=== PATIENT | female | born 1985 | race Hispanic/Latino ===

== ENCOUNTER 2018-05-16 03:06 | Emergency (ER) | payer OTHER, SELFPAY ==
[2018-05-16] MEDS ORDERED: METHYLPREDNISOLONE 125 MG INJ ONE (03:17)
[2018-05-16] MEDS ORDERED: DIPHENHYDRAMINE 50 MG/ML VIAL ONE (03:17)
[2018-05-16] MEDS ORDERED: hydrOXYzine HCl 25 MG TAB ONE (03:17)
[2018-05-16] MEDS ORDERED: PANTOPRAZOLE 40 MG INJ ONE (03:17)
[2018-05-16] MEDS ORDERED: NA CHLORIDE 0.9% 1,000 ML ONE (03:18)
[2018-05-16] MEDS ORDERED: FAMOTIDINE 20 MG/2 ML VIAL IV ONE (03:18)
--- NOTE | 2018-05-16 05:07 | EDPHYS ---
Physician Documentation [facility] Name: Radha Chi Age: 32 yrs Sex: Female : 1985 Arrival Date: 05/16/2018 Time: 03:06 Bed 4 Private MD: ED Physician Kevin Arreguin HPI: 05/16 03:15 This 32 yrs old Female presents to ER via Unassigned with complaints of ps1 Allergic Reaction. 03:15 patient has history of non-specific urticaria without cause. Patient states it is ps1 usually associated with food but no specific etiology. Onset was this evening associated with urticaria on abdomen and upper extremities. Tickling in back of throat. . 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 - Social history:: Smoking status: Patient uses tobacco products, denies chronic smoking, but will smoke occasionally, Patient uses alcohol, occasionally. - Ebola Screening: : Patient negative for fever greater than or equal to 101.5 degrees Fahrenheit, and additional compatible Ebola Virus Disease symptoms. ROS: 03:15 Constitutional: Negative for fever, chills, and weight loss, Eyes: Negative for injury, ps1 pain, redness, and discharge, Cardiovascular: Negative for chest pain, palpitations, and edema, Respiratory: Negative for shortness of breath, cough, wheezing, and pleuritic chest pain, Abdomen/GI: Negative for abdominal pain, nausea, vomiting, diarrhea, and constipation, Back: Negative for injury and pain. 03:15 Skin: Positive for rash. Exam: 03:15 Constitutional: This is a well developed, well nourished patient who is awake, alert, ps1 and in no acute distress. Head/Face: Normocephalic, atraumatic. Eyes: Pupils equal round and reactive to light, extra-ocular motions intact. Lids and lashes normal. Conjunctiva and sclera are non-icteric and not injected. ENT: Nares patent. No nasal discharge, no septal abnormalities noted. Tympanic membranes are normal and external auditory canals are clear. Oropharynx with no redness, swelling, or masses, exudates, or evidence of obstruction, uvula midline. Mucous membranes moist. Chest/axilla: Normal chest wall appearance and motion. Nontender with no deformity. No lesions are appreciated. Cardiovascular: Regular rate and rhythm. No gallops, murmurs, or rubs. Normal PMI, no JVD. No pulse deficits. Respiratory: Lungs have equal breath sounds bilaterally, clear to auscultation and percussion. No rales, rhonchi or wheezes noted. No increased work of breathing, no retractions or nasal flaring. Abdomen/GI: Soft, non-tender, with normal bowel sounds. No distension or tympany. No guarding or rebound. No evidence of tenderness throughout. 03:15 Skin: urticaria, and is diffusely located. Vital Signs: 03:15 BP 103 / 87; Pulse 145; Resp 26 S; Temp 98.3(O); Pulse Ox 100% on R/A; Weight 57.61 kg jd3 (R); Height 5 ft. 1 in. (154.94 cm) (R); 03:41 BP 124 / 86; Pulse 106; Resp 22 S; Pulse Ox 100% on R/A; jd3 03:57 BP 124 / 86; Pulse 94; Resp 17 S; Pulse Ox 100% on R/A; jd3 04:20 BP 116 / 85; Pulse 89; Resp 17 S; Pulse Ox 100% on R/A; jd3 04:57 BP 114 / 73; Pulse 83; Resp 15 S; Pulse Ox 100% on R/A; jd3 05:52 BP 113 / 79; Pulse 95; Resp 20 S; Temp 97.8(TE); Pulse Ox 100% on R/A; bb 03:15 Body Mass Index 24.00 (57.61 kg, 154.94 cm) jd3 MDM: 03:17 Patient medically screened. ps1 05:04 Data reviewed: vital signs, nurses notes. Counseling: I had a detailed discussion with ps1 the patient and/or guardian regarding: the historical points, exam findings, and any diagnostic results supporting the discharge/admit diagnosis, to return to the emergency department if symptoms worsen or persist or if there are any questions or concerns that arise at home. Response to treatment: the patient's symptoms have resolved after treatment, no rash or respiratory symptoms. 05/16 03:50 Order name: IV; Complete Time: 03:50 jd3 Administered Medications: 03:12 Drug: Benadryl 50 mg Route: IVP; Site: right antecubital; bb 04:12 Follow up: Response: No adverse reaction; Marked relief of symptoms jd3 03:12 Drug: NS 0.9% 1000 ml Route: IV; Rate: 1 bolus; Site: right antecubital; bb 04:12 Follow up: IV Status: Completed infusion; IV Intake: 1000ml bb 03:13 Drug: ProTONIX 40 mg Route: IVP; Site: right antecubital; bb 04:13 Follow up: Response: No adverse reaction; Marked relief of symptoms jd3 03:13 Drug: hydrOXYzine 25 mg Route: PO; bb 04:13 Follow up: Response: No adverse reaction; Marked relief of symptoms jd3 03:14 Drug: Pepcid 20 mg Route: IVP; Site: right antecubital; bb 04:14 Follow up: Response: No adverse reaction; Marked relief of symptoms jd3 03:15 Drug: SOLU-Medrol 125 mg Route: IVP; Site: right antecubital; bb 04:15 Follow up: Response: No adverse reaction; Marked relief of symptoms jd3 Disposition: 05/16/18 05:06 Discharged to Home. Impression: Urticaria, unspecified. - Condition is Stable. - Discharge Instructions: Hives, Oaub-ye-Duis. - Prescriptions for Benadryl 25 mg Oral Capsule - take 1 capsule by ORAL route every 6 hours As needed; 30 tablet. Medrol (Domenic) 4 mg Oral Tablets, Dose Pack - take 1 tablet by ORAL route as directed - follow package instructions; 1 packet. EpiPen 0.3 mg Injection auto- injector - inject 1 pen by INTRAMUSCULAR route as directed Inject into the outer portion of the thigh, through clothing if necessary. Indicated in the emergency treatment of allergic reactions; 2 Each. - Medication Reconciliation Form, Thank You Letter, Antibiotic Education, Prescription Opioid Use form. - Follow up: Private Physician; When: As needed; Reason: Recheck today's complaints, Continuance of care, Re-evaluation by your physician. Follow up: Emergency Department; When: As needed; Reason: Trouble breathing, Worsening of condition. - Problem is an acute exacerbation. - Symptoms are resolved. Signatures: Ivy Coles RN RN bb Carl Parikh RN RN jd3 Kevin Arreguin MD MD ps1 Corrections: (The following items were deleted from the chart) 05:53 05:06 05/16/2018 05:06 Discharged to Home. Impression: Urticaria, unspecified. bb Condition is Stable. Forms are Medication Reconciliation Form, Thank You Letter, Antibiotic Education, Prescription Opioid Use. Follow up: Private Physician; When: As needed; Reason: Recheck today's complaints, Continuance of care, Re-evaluation by your physician. Follow up: Emergency Department; When: As needed; Reason: Trouble breathing, Worsening of condition. Problem is an acute exacerbation. Symptoms are resolved. ps1
--- NOTE | 2018-05-16 05:07 | ER ---
Nurse's Notes [facility] Name: Radha Chi Age: 32 yrs Sex: Female : 1985 Arrival Date: 05/16/2018 Time: 03:06 Bed 4 Private MD: Diagnosis: Urticaria, unspecified Presentation: 05/16 03:15 Method Of Arrival: Ambulatory jd3 03:15 Presenting complaint: Patient states: "I am having an allergic reaction.". Transition jd3 of care: patient was not received from another setting of care. Onset: The symptoms/episode began/occurred just prior to arrival. Anaphylaxis evaluation, the patient reports or I have noted the following symptoms which indicate a significant risk of anaphylaxis: angioedema lump in the throat which may suggest laryngeal edema shortness of breath. Onset of symptoms was May 16, 2018. Risk Assessment: Do you want to hurt yourself or someone else? Patient reports no desire to harm self or others. Initial Sepsis Screen: Does the patient meet any 2 criteria? RR > 20 per min. HR > 90 bpm. Yes Does the patient have a suspected source of infection? No. Patient's initial sepsis screen is negative. Care prior to arrival: None. 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 - Social history:: Smoking status: Patient uses tobacco products, denies chronic smoking, but will smoke occasionally, Patient uses alcohol, occasionally. - Ebola Screening: : Patient negative for fever greater than or equal to 101.5 degrees Fahrenheit, and additional compatible Ebola Virus Disease symptoms. Screenin:36 Abuse screen: Denies threats or abuse. Nutritional screening: No deficits noted. jd3 Tuberculosis screening: No symptoms or risk factors identified. Fall Risk IV access (20 points). Ambulatory Aid- None/Bed Rest/Nurse Assist (0 pts). Gait- Normal/Bed Rest/Wheelchair (0 pts) Mental Status- Oriented to own ability (0 pts). Total Reina Fall Scale indicates No Risk (0-24 pts). Assessment: 03:15 General: Appears uncomfortable, Behavior is cooperative, anxious. jd3 03:15 Pain: Complains of pain in abdomen. Neuro: Level of Consciousness is awake, alert, jd3 obeys commands, Oriented to person, place, time, situation. Cardiovascular: Heart tones S1 S2 present Capillary refill < 3 seconds Patient's skin is warm and dry. Respiratory: Reports shortness of breath at rest lumb in the back of throat. Airway is patent Respiratory effort is even, labored, Respiratory pattern is regular, symmetrical, angioedema noted Breath sounds are clear bilaterally. GI: Abdomen is round Bowel sounds present X 4 quads. Abd is soft and non tender X 4 quads. : No signs and/or symptoms were reported regarding the genitourinary system. EENT: No signs and/or symptoms were reported regarding the EENT system. Derm: Skin is intact, Skin is dry, Skin is normal, Skin temperature is warm Rash noted that is itchy, raised, generalized. Musculoskeletal: Circulation, motion, and sensation intact. Range of motion: intact in all extremities. 03:36 Reassessment: Patient and/or family updated on plan of care and expected duration. Pain jd3 level reassessed. Patient is alert, oriented x 3, equal unlabored respirations, skin warm/dry/pink. reports medication starting to help. 03:59 Reassessment: Patient and/or family updated on plan of care and expected duration. Pain jd3 level reassessed. Patient is alert, oriented x 3, equal unlabored respirations, skin warm/dry/pink. Patient states feeling better. Patient states symptoms have improved. 04:20 Reassessment: Patient appears in no apparent distress at this time. Patient and/or jd3 family updated on plan of care and expected duration. Pain level reassessed. Patient is alert, oriented x 3, equal unlabored respirations, skin warm/dry/pink. Patient states feeling better. Patient states symptoms have improved. 04:56 Reassessment: Patient appears in no apparent distress at this time. Patient and/or jd3 family updated on plan of care and expected duration. Pain level reassessed. Patient is alert, oriented x 3, equal unlabored respirations, skin warm/dry/pink. Patient states feeling better. Patient states symptoms have improved. 05:53 Reassessment: Patient and/or family updated on plan of care and expected duration. Pain bb level reassessed. Patient is alert, oriented x 3, equal unlabored respirations, skin warm/dry/pink. pt verbalized understanding of and agrees to plan of care discharge instructions given pt ambulated with steady gait to exit accompanied by family Patient states symptoms have improved. Vital Signs: 03:15 BP 103 / 87; Pulse 145; Resp 26 S; Temp 98.3(O); Pulse Ox 100% on R/A; Weight 57.61 kg jd3 (R); Height 5 ft. 1 in. (154.94 cm) (R); 03:41 BP 124 / 86; Pulse 106; Resp 22 S; Pulse Ox 100% on R/A; jd3 03:57 BP 124 / 86; Pulse 94; Resp 17 S; Pulse Ox 100% on R/A; jd3 04:20 BP 116 / 85; Pulse 89; Resp 17 S; Pulse Ox 100% on R/A; jd3 04:57 BP 114 / 73; Pulse 83; Resp 15 S; Pulse Ox 100% on R/A; jd3 05:52 BP 113 / 79; Pulse 95; Resp 20 S; Temp 97.8(TE); Pulse Ox 100% on R/A; bb 03:15 Body Mass Index 24.00 (57.61 kg, 154.94 cm) jd3 ED Course: 03:06 Patient arrived in ED. ds1 03:07 Kevin Arreguin MD is Attending Physician. ps1 03:15 Inserted saline lock: 20 gauge in right antecubital area, using aseptic technique. jd3 Blood collected. 03:19 Carl Parikh, RN is Primary Nurse. jd3 03:30 Triage completed. jd3 03:35 Patient has correct armband on for positive identification. Placed in gown. Bed in low jd3 position. Call light in reach. Side rails up X2. Adult w/ patient. 03:36 Arm band placed on. jd3 05:51 No provider procedures requiring assistance completed. IV discontinued, intact, bb bleeding controlled, No redness/swelling at site. Pressure dressing applied. Administered Medications: 03:12 Drug: Benadryl 50 mg Route: IVP; Site: right antecubital; bb 04:12 Follow up: Response: No adverse reaction; Marked relief of symptoms jd3 03:12 Drug: NS 0.9% 1000 ml Route: IV; Rate: 1 bolus; Site: right antecubital; bb 04:12 Follow up: IV Status: Completed infusion; IV Intake: 1000ml bb 03:13 Drug: ProTONIX 40 mg Route: IVP; Site: right antecubital; bb 04:13 Follow up: Response: No adverse reaction; Marked relief of symptoms jd3 03:13 Drug: hydrOXYzine 25 mg Route: PO; bb 04:13 Follow up: Response: No adverse reaction; Marked relief of symptoms jd3 03:14 Drug: Pepcid 20 mg Route: IVP; Site: right antecubital; bb 04:14 Follow up: Response: No adverse reaction; Marked relief of symptoms jd3 03:15 Drug: SOLU-Medrol 125 mg Route: IVP; Site: right antecubital; bb 04:15 Follow up: Response: No adverse reaction; Marked relief of symptoms jd3 Intake: 04:12 IV: 1000ml; Total: 1000ml. bb Outcome: 05:06 Discharge ordered by . ps1 05:52 Discharged to home ambulatory, with family. bb 05:52 Condition: stable 05:52 Discharge instructions given to patient, Instructed on discharge instructions, follow up and referral plans. medication usage, Demonstrated understanding of instructions, follow-up care, medications, Prescriptions given X 3. 05:53 Patient left the ED. bb Signatures: Kaity Lau ds1 Ivy Coles RN RN bb Carl Parikh RN RN jd3 Kevin Arreguin MD MD ps1 Corrections: (The following items were deleted from the chart) 03:28 Presenting complaint: Patient states: "I am having an allergic reaction." jd3 jd3 32 03:28 Transition of care: patient was not received from another setting of care. jd3 jd3 03:28 Onset: The symptoms/episode began/occurred just prior to arrival, jd3 jd3 32 03:28 Anaphylaxis evaluation, the patient reports or I have noted the following jd3 symptoms which indicate a significant risk of anaphylaxis: shortness of breath jd3 03:28 Onset of symptoms was May 16, 2018 jd3 jd3 32 03:28 Risk Assessment: Do you want to hurt yourself or someone else? Patient reports no jd3 desire to harm self or others. jd3 : 03:28 Initial Sepsis Screen: Does the patient meet any 2 criteria? RR > 20 per min. HR jd3 > 90 bpm. Yes Does the patient have a suspected source of infection? No. Patient's initial sepsis screen is negative. jd3 03:28 Care prior to arrival: None. jd3 jd3 03:28 Method Of Arrival: Ambulatory jd3 jd3 03:28 Acuity: ADY 2 jd3 jd3 03:38 03:15 Anaphylaxis evaluation, the patient reports or I have noted the following jd3 symptoms which indicate a significant risk of anaphylaxis: shortness of breath jd3 :38 03:15 Anaphylaxis evaluation, the patient reports or I have noted the following jd3 symptoms which indicate a significant risk of anaphylaxis: angioedema shortness of breath jd3 :38 03:15 Acuity: ADY 2 jd3 jd3 03:40 03:15 Respiratory: Reports shortness of breath at rest Airway is patent Respiratory jd3 effort is even, labored, Respiratory pattern is regular, symmetrical, Breath sounds are clear bilaterally. jd3 03:40 03:15 Derm: Skin is intact, Skin is dry, Skin is normal, Skin temperature is warm Rash jd3 noted that is raised, generalized jd3 03:42 03:15 BP 103 / 87; Pulse 145bpm; Resp 23bpm; Spontaneous; Pulse Ox 100% RA; Temp 98.3F jd3 Oral; 57.61 kg Reported; Height 5 ft. 1 in. Reported; BMI: 24.0; jd3 03:42 03:41 BP 124 / 86; Pulse 106bpm; Resp 20bpm; Spontaneous; Pulse Ox 100% RA; jd3 jd3 04:25 03:15 Response: No adverse reaction; Marked relief of symptoms jd3 jd3 04:25 03:13 Response: No adverse reaction; Marked relief of symptoms jd3 jd3
[2018-05-16 06:18] VITALS: O2SAT 100
[2018-05-16 06:23] VITALS: BP 113/79; TEMP 97.8
== END 2018-05-16 05:53 | disposition home or self-care (01) ==
LOC: ER 03:06
DX: L50.9 Urticaria, unspecified (principal); F41.9 Anxiety disorder, unspecified; Z72.0 Tobacco use; Z88.5 Allergy status to narcotic agent
CPT/HCPCS: 96361; 96374; 96375; 99291; 99292; C9113; J2930; J7030

== ENCOUNTER 2019-02-14 14:36 | Emergency (ER) | payer SELFPAY ==
--- NOTE | 2019-02-14 15:20 | EDPHYS ---
Physician Documentation [facility] Name: Radha Chi Age: 33 yrs Sex: Female : 1985 Arrival Date: 02/14/2019 Time: 14:39 Bed 6 Private MD: ED Physician Oneil Graves HPI: 02/14 15:10 This 33 yrs old Female presents to ER via Ambulatory with complaints of Facial kb Swelling. 15:18 the patient presents with a swollen area of the left cheek. Description: swollen. kb Onset: The symptoms/episode began/occurred this morning. Possible cause(s): unknown. Associated signs and symptoms: Pertinent positives: swelling. Modifying factors: the symptoms are alleviated by nothing, the symptoms are aggravated by nothing. Severity of symptoms: At their worst the symptoms were moderate, in the emergency department the symptoms have improved, mildly. The patient has not experienced similar symptoms in the past. The patient has not recently seen a physician. 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 tw2 Historical: - Allergies: 14:48 Morphine; aj - Home Meds: 14:48 Unknown HTN medication [Active]; aj - PMHx: 14:48 Allergic Reaction; Anxiety; Hypertension; aj - PSHx: 14:48 Tubal ligation; LEAP; aj - Immunization history:: Adult Immunizations. - Social history:: Smoking status: . - Ebola Screening: : Patient denies travel to an Ebola-affected area in the 21 days before illness onset. ROS: 15:08 Constitutional: Negative for fever, chills, and weight loss, Neck: Negative for injury, kb pain, and swelling, Cardiovascular: Negative for chest pain, palpitations, and edema, Respiratory: Negative for shortness of breath, cough, wheezing, and pleuritic chest pain, Abdomen/GI: Negative for abdominal pain, nausea, vomiting, diarrhea, and constipation, MS/Extremity: Negative for injury and deformity, Neuro: Negative for headache, weakness, numbness, tingling, and seizure. 15:08 Skin: Positive for swelling, of the left cheek. Exam: 15:08 Constitutional: This is a well developed, well nourished patient who is awake, alert, kb and in no acute distress. Head/Face: Normocephalic, atraumatic. Neck: Trachea midline, no thyromegaly or masses palpated, and no cervical lymphadenopathy. Supple, full range of motion without nuchal rigidity, or vertebral point tenderness. No Meningismus. Chest/axilla: Normal chest wall appearance and motion. Nontender with no deformity. No lesions are appreciated. Cardiovascular: Regular rate and rhythm with a normal S1 and S2. No gallops, murmurs, or rubs. Normal PMI, no JVD. No pulse deficits. Respiratory: Lungs have equal breath sounds bilaterally, clear to auscultation and percussion. No rales, rhonchi or wheezes noted. No increased work of breathing, no retractions or nasal flaring. Abdomen/GI: Soft, non-tender, with normal bowel sounds. No distension or tympany. No guarding or rebound. No evidence of tenderness throughout. MS/ Extremity: Pulses equal, no cyanosis. Neurovascular intact. Full, normal range of motion. Neuro: Awake and alert, GCS 15, oriented to person, place, time, and situation. Cranial nerves II-XII grossly intact. Motor strength 5/5 in all extremities. Sensory grossly intact. Cerebellar exam normal. Normal gait. 15:08 Skin: cellulitis, that is mild, on the left cheek. Vital Signs: 14:48 BP 154 / 100; Pulse 93; Resp 16; Temp 98.1; Pulse Ox 100% on R/A; Weight 57.61 kg; aj Height 5 ft. 1 in. (154.94 cm); 15:25 BP 140 / 89; Pulse 86; Resp 17; Pulse Ox 99% on R/A; tw2 14:48 Body Mass Index 24.00 (57.61 kg, 154.94 cm) aj MDM: 14:50 Patient medically screened. kb 15:09 Data reviewed: vital signs, nurses notes. Data interpreted: Pulse oximetry: on room air kb is 100 %. Interpretation: normal. Counseling: I had a detailed discussion with the patient and/or guardian regarding: the historical points, exam findings, and any diagnostic results supporting the discharge/admit diagnosis, the need for outpatient follow up, a family practitioner, to return to the emergency department if symptoms worsen or persist or if there are any questions or concerns that arise at home. Administered Medications: 15:17 Drug: TORadol 60 mg Route: IM; Site: left gluteus; tw2 15:26 Follow up: Response: No adverse reaction; Pain is decreased tw2 15:17 Drug: Bactrim (160 mg-800 mg (DS) 1 tablet Route: PO; tw2 15:26 Follow up: Response: No adverse reaction tw2 15:17 Drug: KeFLEX 500 mg Route: PO; tw2 15:26 Follow up: Response: No adverse reaction tw2 Disposition: 17:39 Co-signature as Attending Physician, Oneil Graves MD. rn Disposition: 02/14/19 15:19 Discharged to Home. Impression: Cellulitis of face. - Condition is Stable. - Discharge Instructions: Cellulitis, Adult, [id number]. - Prescriptions for Keflex 500 mg Oral Capsule - take 1 capsule by ORAL route every 8 hours for 10 days; 30 capsule. Bactrim DS 800- 160 mg Oral Tablet - take 1 tablet by ORAL route every 12 hours for 10 days; 20 tablet. - Medication Reconciliation Form, Thank You Letter, Antibiotic Education, Prescription Opioid Use, Work release form form. - Follow up: Emergency Department; When: As needed; Reason: Worsening of condition. Follow up: Private Physician; When: 2 - 3 days; Reason: Recheck today's complaints, Continuance of care, Re-evaluation by your physician. Signatures: Radha Noyola, SELENA-C BRAID CUTTER-Dahiana Huerta RN RN aj Nieto, Roman, MD MD rn Wise, Tara, RN RN tw2 Corrections: (The following items were deleted from the chart) 15:27 15:19 02/14/2019 15:19 Discharged to Home. Impression: Cellulitis of face. Condition is tw2 Stable. Forms are Work release form, Medication Reconciliation Form, Thank You Letter, Antibiotic Education, Prescription Opioid Use. Follow up: Emergency Department; When: As needed; Reason: Worsening of condition. Follow up: Private Physician; When: 2 - 3 days; Reason: Recheck today's complaints, Continuance of care, Re-evaluation by your physician. kb
--- NOTE | 2019-02-14 15:20 | ER ---
Nurse's Notes [facility] Name: Radha Chi Age: 33 yrs Sex: Female : 1985 Arrival Date: 02/14/2019 Time: 14:39 Bed 6 Private MD: Diagnosis: Cellulitis of face Presentation: 02/14 14:46 Presenting complaint: Patient states: Swelling and pain to left cheek and under left aj eye. Transition of care: patient was not received from another setting of care. Onset of symptoms was February 14, 2019. Risk Assessment: Do you want to hurt yourself or someone else? Patient reports no desire to harm self or others. Initial Sepsis Screen: Does the patient meet any 2 criteria? No. Patient's initial sepsis screen is negative. Does the patient have a suspected source of infection? No. Patient's initial sepsis screen is negative. Care prior to arrival: None. 14:46 Method Of Arrival: Ambulatory 14:46 Acuity: ADY 3 aj Triage Assessment: 14:48 General: Appears in no apparent distress. comfortable, Behavior is calm, cooperative, aj appropriate for age. Pain: Complains of pain in left eye, left zygomatic area and left cheek. Neuro: Level of Consciousness is awake, alert, obeys commands, Oriented to person, place, time, situation, Appropriate for age. Respiratory: Airway is patent Respiratory effort is even, unlabored, Respiratory pattern is regular, symmetrical. Derm: Skin is intact, is healthy with good turgor, Skin is pink, warm \T\ dry. normal. 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 tw2 Historical: - Allergies: 14:48 Morphine; aj - Home Meds: 14:48 Unknown HTN medication [Active]; aj - PMHx: 14:48 Allergic Reaction; Anxiety; Hypertension; aj - PSHx: 14:48 Tubal ligation; LEAP; aj - Immunization history:: Adult Immunizations. - Social history:: Smoking status: . - Ebola Screening: : Patient denies travel to an Ebola-affected area in the 21 days before illness onset. Screenin:52 Abuse screen: Denies threats or abuse. Nutritional screening: No deficits noted. tw2 Tuberculosis screening: No symptoms or risk factors identified. Fall Risk None identified. Assessment: 14:57 General: Appears in no apparent distress. Behavior is cooperative. Pain: Complains of tw2 pain in left cheek and left eye. Neuro: Level of Consciousness is awake, alert, obeys commands, Oriented to person, place, time, situation. Cardiovascular: Heart tones S1 S2 Patient's skin is warm and dry. Respiratory: Airway is patent Respiratory effort is even, unlabored, Respiratory pattern is regular, symmetrical, Breath sounds are clear bilaterally. GI: Abdomen is flat, Bowel sounds present X 4 quads. : No signs and/or symptoms were reported regarding the genitourinary system. EENT: Reports swelling LEFT eye. Derm: No signs and/or symptoms reported regarding the dermatologic system. Musculoskeletal: Range of motion: intact in all extremities. 15:25 Reassessment: Patient appears in no apparent distress at this time. No changes from tw2 previously documented assessment. Patient and/or family updated on plan of care and expected duration. Pain level reassessed. Patient is alert, oriented x 3, equal unlabored respirations, skin warm/dry/pink. Vital Signs: 14:48 BP 154 / 100; Pulse 93; Resp 16; Temp 98.1; Pulse Ox 100% on R/A; Weight 57.61 kg; aj Height 5 ft. 1 in. (154.94 cm); 15:25 BP 140 / 89; Pulse 86; Resp 17; Pulse Ox 99% on R/A; tw2 14:48 Body Mass Index 24.00 (57.61 kg, 154.94 cm) ED Course: 14:39 Patient arrived in ED. mr 14:47 Triage completed. aj 14:48 Radha Noyola FNP-C is [facility]. kb 14:48 Oneil Graves MD is Attending Physician. kb 14:48 Arm band placed on left wrist. Patient placed in an exam room. aj 14:49 Bed in low position. Call light in reach. Pulse ox on. NIBP on. tw2 14:51 Raisa Posey, PAMELA is Primary Nurse. tw2 15:26 No provider procedures requiring assistance completed. Patient did not have IV access tw2 during this emergency room visit. Administered Medications: 15:17 Drug: TORadol 60 mg Route: IM; Site: left gluteus; tw2 15:26 Follow up: Response: No adverse reaction; Pain is decreased tw2 15:17 Drug: Bactrim (160 mg-800 mg (DS) 1 tablet Route: PO; tw2 15:26 Follow up: Response: No adverse reaction tw2 15:17 Drug: KeFLEX 500 mg Route: PO; tw2 15: Follow up: Response: No adverse reaction tw2 Outcome: 15:19 Discharge ordered by MD. arango 15: Discharged to home ambulatory. tw2 15: Condition: stable 15: Discharge instructions given to patient, Instructed on discharge instructions, follow up and referral plans. medication usage, Demonstrated understanding of instructions, follow-up care, medications, Prescriptions given X 2. 15:27 Patient left the ED. tw2 Signatures: Radha Noyola, SOPHYC SELENA-Dahiana Huerta RN Lizet Mckeon Tara, RN RN tw2
[2019-02-14] MEDS ORDERED: CEPHALEXIN 250 MG CAP ONE (15:26)
[2019-02-14] MEDS ORDERED: KETOROLAC 30 MG/ML INJ ONE (15:26)
[2019-02-14] MEDS ORDERED: SMZ./TMP. 800/160 MG TABLET ONE (15:26)
[2019-02-14 15:30] VITALS: TEMP 98.1
[2019-02-14 15:32] VITALS: BP 140/89; O2SAT 99
== END 2019-02-14 15:27 | disposition home or self-care (01) ==
LOC: ER 14:36
DX: L03.211 Cellulitis of face (principal); I10 Essential (primary) hypertension; Z88.6 Allergy status to analgesic agent
CPT/HCPCS: 96372; 99283

== ENCOUNTER 2019-07-04 12:06 | Emergency (ER) | payer SELFPAY ==
[2019-07-04] MEDS ORDERED: METHYLPREDNISOLONE 125 MG INJ ONE (12:51)
[2019-07-04] MEDS ORDERED: DIPHENHYDRAMINE 50 MG/ML VIAL ONE (12:51)
[2019-07-04] MEDS ORDERED: KETOROLAC 30 MG/ML INJ ONE (12:52)
--- NOTE | 2019-07-04 13:00 | EDPHYS ---
Physician Documentation [facility] Name: Radha Chi Age: 33 yrs Sex: Female : 1985 Arrival Date: 07/04/2019 Time: 12:09 Bed 30 Private MD: ED Physician Chelsea Horta HPI: 07/04 12:55 This 33 yrs old Female presents to ER via Ambulatory with complaints of Insect ma2 Bite. 12:55 Onset: The symptoms/episode began/occurred suddenly, 3 hour(s) ago. Severity of ma2 symptoms: At their worst the symptoms were very mild in the emergency department the symptoms are unchanged. The patient has not experienced similar symptoms in the past. 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 - Social history:: Smoking status: Patient uses tobacco products, denies chronic smoking, but will smoke occasionally, Patient/guardian denies using alcohol, street drugs, The patient lives with family. - Ebola Screening: : No symptoms or risks identified at this time. - Family history:: not pertinent. ROS: 12:55 Constitutional: Negative for fever, chills, and weight loss, Eyes: Negative for injury, ma2 pain, redness, and discharge, ENT: Negative for injury, pain, and discharge, Neck: Negative for injury, pain, and swelling, Cardiovascular: Negative for chest pain, palpitations, and edema, Respiratory: Negative for shortness of breath, cough, wheezing, and pleuritic chest pain, Abdomen/GI: Negative for abdominal pain, nausea, diarrhea, and constipation. 12:55 All other systems are negative. Exam: 12:55 Constitutional: This is a well developed, well nourished patient who is awake, alert, ma2 and in no acute distress. Head/Face: Normocephalic, atraumatic. Eyes: Pupils equal round and reactive to light, extra-ocular motions intact. Lids and lashes normal. Conjunctiva and sclera are non-icteric and not injected. Cornea within normal limits. Periorbital areas with no swelling, redness, or edema. ENT: swelling mild over left cheeck, otherwise Nares patent. No nasal discharge, no septal abnormalities noted. Tympanic membranes are normal and external auditory canals are clear. Oropharynx with no redness, swelling, or masses, exudates, or evidence of obstruction, uvula midline. Mucous membranes moist. Neck: Trachea midline, no thyromegaly or masses palpated, and no cervical lymphadenopathy. Supple, full range of motion without nuchal rigidity, or vertebral point tenderness. No Meningismus. Chest/axilla: Normal chest wall appearance and motion. Nontender with no deformity. No lesions are appreciated. Cardiovascular: Regular rate and rhythm with a normal S1 and S2. No gallops, murmurs, or rubs. Normal PMI, no JVD. No pulse deficits. Respiratory: Lungs have equal breath sounds bilaterally, clear to auscultation and percussion. No rales, rhonchi or wheezes noted. No increased work of breathing, no retractions or nasal flaring. Abdomen/GI: Soft, non-tender, with normal bowel sounds. No distension or tympany. No guarding or rebound. No evidence of tenderness throughout. Vital Signs: 12:13 BP 148 / 90; Pulse 84; Resp 16; Temp 97.0; Pulse Ox 100% on R/A; Weight 55.34 kg; la1 Height 5 ft. 1 in. (154.94 cm); 13:15 BP 145 / 95; Pulse 89; Resp 16 S; Pulse Ox 100% on R/A; ca1 12:13 Body Mass Index 23.05 (55.34 kg, 154.94 cm) la1 MDM: 12:14 Patient medically screened. ma2 12:55 Differential Diagnosis allergic reaction vs cellulitis vs mild swelling . Data ma2 reviewed: vital signs, nurses notes. Counseling: I had a detailed discussion with the patient and/or guardian regarding: the historical points, exam findings, and any diagnostic results supporting the discharge/admit diagnosis, the presence of at least one elevated blood pressure reading (>120/80) during this emergency department visit, the need for outpatient follow up. Response to treatment: the patient's symptoms have mildly improved after treatment. Administered Medications: 12:50 Drug: Ketorolac 60 mg Route: IM; Site: right gluteus; ca1 13:14 Follow up: Response: No adverse reaction ca1 12:52 Drug: MethylPREDNISolone Sodium Succinate 125 mg Route: IM; Site: left gluteus; ca1 13:14 Follow up: Response: No adverse reaction ca1 12:55 Drug: Benadryl 50 mg Route: IM; Site: left deltoid; ca1 13:14 Follow up: Response: No adverse reaction ca1 Disposition: 07/04/19 12:59 Discharged to Home. Impression: Cellulitis of face. - Condition is Stable. - Discharge Instructions: Cellulitis, Adult. - Prescriptions for Benadryl 25 mg Oral Capsule - take 1 capsule by ORAL route every 6 hours As needed; 30 tablet. Medrol (Domenic) 4 mg Oral Tablets, Dose Pack - take 1 tablet by ORAL route as directed - follow package instructions; 1 packet. Bactrim 400- 80 mg Oral Tablet - take 2 tablets by ORAL route 2 times per day; 10 tablet. Tylenol- Codeine #3 300-30 mg Oral Tablet - take 2 tablet by ORAL route every 6 hours As needed; 30 tablet. - Work release form, Medication Reconciliation Form, Thank You Letter, Antibiotic Education, Prescription Opioid Use form. - Follow up: Private Physician; When: Tomorrow; Reason: Continuance of care. Signatures: Suleiman Tijerina RN RN la1 Chelsea Horta MD MD ma2 Maryjane Stewart RN RN ca1 Corrections: (The following items were deleted from the chart) 13:17 12:59 07/04/2019 12:59 Discharged to Home. Impression: Cellulitis of face. Condition is ca1 Stable. Forms are Medication Reconciliation Form, Thank You Letter, Antibiotic Education, Prescription Opioid Use. Follow up: Private Physician; When: Tomorrow; Reason: Continuance of care. maDuy
--- NOTE | 2019-07-04 13:00 | ER ---
Nurse's Notes [facility] Name: Radha Chi Age: 33 yrs Sex: Female : 1985 Arrival Date: 07/04/2019 Time: 12:09 Bed 30 Private MD: Diagnosis: Cellulitis of face Presentation: 07/04 12:12 Presenting complaint: Patient states: I got bit by a spider on the left side of my face la1 last night, it is swollen and painful this morning. Transition of care: patient was not received from another setting of care. Onset of symptoms was July 04, 2019. Risk Assessment: Do you want to hurt yourself or someone else? Patient reports no desire to harm self or others. Initial Sepsis Screen: Does the patient meet any 2 criteria? No. Patient's initial sepsis screen is negative. Does the patient have a suspected source of infection? No. Patient's initial sepsis screen is negative. Care prior to arrival: None. 12:12 Method Of Arrival: Ambulatory la1 12:12 Acuity: ADY 3 la1 Triage Assessment: 12:30 Bite description: bite sustained to left cheek by a spider, animal information: ca1 vaccination(s) is not applicable. 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 - Social history:: Smoking status: Patient uses tobacco products, denies chronic smoking, but will smoke occasionally, Patient/guardian denies using alcohol, street drugs, The patient lives with family. - Ebola Screening: : No symptoms or risks identified at this time. - Family history:: not pertinent. Screenin:28 Abuse screen: Denies threats or abuse. Denies injuries from another. Nutritional ca1 screening: No deficits noted. Tuberculosis screening: No symptoms or risk factors identified. Fall Risk None identified. Assessment: 12:28 General: Appears in no apparent distress. comfortable, Behavior is calm, cooperative, ca1 appropriate for age. Pain: Complains of pain in left cheek Pain currently is 8 out of 10 on a pain scale. Pain began this morning. Neuro: Level of Consciousness is awake, alert, obeys commands, Oriented to person, place, time, situation, Appropriate for age. Cardiovascular: Heart tones S1 S2 present Capillary refill < 3 seconds Patient's skin is warm and dry. Pulses are all present. Respiratory: Airway is patent Respiratory effort is even, unlabored, Respiratory pattern is regular, symmetrical, Breath sounds are clear bilaterally. GI: Abdomen is flat, non-distended, Bowel sounds present X 4 quads. Abd is soft and non tender X 4 quads. : No deficits noted. No signs and/or symptoms were reported regarding the genitourinary system. EENT: No deficits noted. No signs and/or symptoms were reported regarding the EENT system. Derm: Skin is intact, is healthy with good turgor, Skin is pink, warm \T\ dry. Rash noted that is on left cheek. Musculoskeletal: Circulation, motion, and sensation intact. Capillary refill < 3 seconds, Range of motion: intact in all extremities. 13:15 Reassessment: Patient appears in no apparent distress at this time. Patient is alert, ca1 oriented x 3, equal unlabored respirations, skin warm/dry/pink. Vital Signs: 12:13 BP 148 / 90; Pulse 84; Resp 16; Temp 97.0; Pulse Ox 100% on R/A; Weight 55.34 kg; la1 Height 5 ft. 1 in. (154.94 cm); 13:15 BP 145 / 95; Pulse 89; Resp 16 S; Pulse Ox 100% on R/A; ca1 12:13 Body Mass Index 23.05 (55.34 kg, 154.94 cm) la1 ED Course: 12:09 Patient arrived in ED. mr 12:12 Arm band placed on right wrist. la1 12:13 Triage completed. la1 12:14 Chelsea Horta MD is Attending Physician. ma2 12:16 Maryjane Stewart, PAMELA is Primary Nurse. ca1 12:28 Patient has correct armband on for positive identification. Bed in low position. Call ca1 light in reach. Side rails up X 1. Pulse ox on. NIBP on. Warm blanket given. 12:28 No provider procedures requiring assistance completed. Patient did not have IV access ca1 during this emergency room visit. Administered Medications: 12:50 Drug: Ketorolac 60 mg Route: IM; Site: right gluteus; ca1 13:14 Follow up: Response: No adverse reaction ca1 12:52 Drug: MethylPREDNISolone Sodium Succinate 125 mg Route: IM; Site: left gluteus; ca1 13:14 Follow up: Response: No adverse reaction ca1 12:55 Drug: Benadryl 50 mg Route: IM; Site: left deltoid; ca1 13:14 Follow up: Response: No adverse reaction ca1 Outcome: 12:59 Discharge ordered by . jame 13:16 Discharged to home ambulatory, with family. ca1 13:16 Condition: stable 13:16 Discharge instructions given to patient, Instructed on discharge instructions, follow up and referral plans. no driving heavy equipment, medication usage, Demonstrated understanding of instructions, follow-up care, medications, Prescriptions given X 4. 13:17 Patient left the ED. ca1 Signatures: Lizet Banerjee Lee, RN RN la1 Chelsea Horta MD MD ma2 Maryjane Stewart RN RN ca1
[2019-07-04 13:47] VITALS: TEMP 97; O2SAT 100
[2019-07-04 13:49] VITALS: BP 145/95
== END 2019-07-04 13:17 | disposition home or self-care (01) ==
LOC: ER 12:06
DX: L03.211 Cellulitis of face (principal); Z88.6 Allergy status to analgesic agent; Z72.0 Tobacco use
CPT/HCPCS: 96372; 99283; J1200; J2930

== ENCOUNTER 2023-01-27 05:53 | Emergency (ER) | payer SELFPAY ==
[2023-01-27 06:48] LABS: Absolute Lymphocytes (CBC) 1.3 K/uL (0.7-4.9); Hematocrit 41.9 % (36.0-45.0); Lymphocytes % 8.4 % (15.3-44.8); MCV 92.3 fL (80-100); MPV 8.4 fL (7.6-11.3); RBC Red Blood Cell Count 4.54 M/uL (3.86-4.86)
[2023-01-27] MEDS ORDERED: ONDANSETRON 4 MG/2 ML VIAL ONE ×2 (06:48→07:39)
[2023-01-27] MEDS ORDERED: KETOROLAC 30 MG/ML INJ ONE (06:48)
[2023-01-27] MEDS ORDERED: NA CHLORIDE 0.9% 1,000 ML ONE ×2 (06:48→07:39)
[2023-01-27 06:53] LABS: Specific Gravity 1.015 (1.005-1.030)
[2023-01-27 06:55] LABS: Specific Gravity 1.016 (1.005-1.030); Urine Bacteria <20 /HPF (<20); Urine Bilirubin NEGATIVE (Negative); Urine Blood 1+ (Negative); Urine Clarity Clear (Clear); Urine Color Light-Yellow (Yellow); Urine Glucose NEGATIVE (Negative); Urine Mucus Slight /HPF (None Seen); Urine Protein NEGATIVE (Negative); Urine Urobilinogen Normal (Normal); Urine pH 5.5 (5.0-7.0)
[2023-01-27 07:21] LABS: Albumin 4.5 g/dL (3.4-5.0); Bilirubin Total 0.4 mg/dL (0.2-1.0); Potassium 3.6 mEq/L (3.5-5.1); Protein, Total 8.1 g/dL (6.4-8.2)
[2023-01-27 07:35] LABS: White Blood Cell Scan OK (OK)
[2023-01-27 07:36] LABS: Platelet Estimate ADEQ
[2023-01-27] MEDS ORDERED: TAMSULOSIN 0.4 MG SR CAP ONE (07:38)
[2023-01-27] MEDS ORDERED: FENTANYL CITR 100 MCG/2 ML ONE (07:38)
[2023-01-27] MEDS ORDERED: NA CHLORIDE 0.9% 50 ML ONE (07:39)
[2023-01-27] MEDS ORDERED: CEFTRIAXONE 1000 MG/VIAL ONE (07:39)
[2023-01-27 07:42] LABS: Blood Morphology Comment NOT SEEN (NOT SEEN)
--- NOTE | 2023-01-27 08:16 | RAD REPORT ---
EXAM DESCRIPTION: CT - Abdomen Pelvis Wo Contrast - 01/27/2023 7:02 am CLINICAL HISTORY: Abdominal pain. FLANK PAIN COMPARISON: Abdomen Pelvis W Contrast dated 03/24/2017 TECHNIQUE: CT imaging of the abdomen and pelvis was performed without contrast. Solid organ, bowel a nd vascular assessment is limited due to lack of IV and oral contrast. All CT scans are performed using dose optimization technique as appropriate and may include automated exposure control or mA/KV adjustment according to patient size. FINDINGS: The lower lung delacruz are clear. The liver, spleen, pancreas, adrenal glands are within normal limits for a limited non-contrast exami nation.Punctate calculus is seen inferior calyx left kidney. Moderate right hydronephrosis and hydroureter is present caused by 5 mm stone distal right ureter. Pu nctate calculus also seen inferior calyx right kidney. No bowel obstruction, free air, free fluid or abscess. The appendix is normal. The osseous structures are within normal limits. IMPRESSION: Moderate right hydronephrosis and hydroureter is present caused by 5 mm stone in the dis salma right ureter. A limited non-contrast examination was performed as detailed.
--- NOTE | 2023-01-27 08:27 | ER ---
Nurse's Notes [facility] Name: Radha Chi Age: 37 yrs Sex: Female : 1985 Arrival Date: 01/27/2023 Time: 05:53 Bed 5 Private MD: Diagnosis: Hydronephrosis with renal and ureteral calculous obstruction-5 mm right distal ureter calculi Presentation: 01/27 06:09 Chief complaint: Patient states: "My lower back hurts so bad it is hard to lay down or vc1 sit. I am also nauseous and getting hot and sweaty then vomiting and I have diarrhea.". Coronavirus screen: Vaccine status: Patient reports being unvaccinated. At this time, the client does not indicate any symptoms associated with coronavirus-19. Ebola Screen: Patient negative for fever greater than or equal to 101.5 degrees Fahrenheit, and additional compatible Ebola Virus Disease symptoms Patient denies exposure to infectious person. Patient denies travel to an Ebola-affected area in the 21 days before illness onset. No symptoms or risks identified at this time. Initial Sepsis Screen: Does the patient meet any 2 criteria? No. Patient's initial sepsis screen is negative. Does the patient have a suspected source of infection? No. Patient's initial sepsis screen is negative. Risk Assessment: Do you want to hurt yourself or someone else? Patient reports no desire to harm self or others. Onset of symptoms was January 27, 2023. 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 - Social history:: Smoking status: Patient denies any tobacco usage or history of. - Family history:: not pertinent. Screenin:12 [facility] ED Fall Risk Assessment (Adult) History of falling in the last 3 months, vc1 including since admission Yes- physiologic fall (2 pts) Confusion or Disorientation No (0 pts) Intoxicated or Sedated No (0 pts) Impaired Gait No (0 pts) Mobility Assist Device Used No (0 pt) Altered Elimination No (0 pt) Score/Fall Risk Level 0 - 2 = Low Risk Oriented to surroundings, Maintained a safe environment, Educated pt \\T\\ family on fall prevention, incl call for assistance when getting out of bed. Abuse screen: Denies threats or abuse. Nutritional screening: No deficits noted. Tuberculosis screening: No symptoms or risk factors identified. Assessment: 06:49 General: Appears in no apparent distress. uncomfortable, Behavior is calm, cooperative. jb4 Pain: Complains of pain in low back area Pain does not radiate. Pain currently is 10 out of 10 on a pain scale. Neuro: Level of Consciousness is awake, alert, obeys commands, Oriented to person, place, time, situation. Cardiovascular: Patient's skin is warm and dry. Respiratory: Airway is patent Respiratory effort is even, unlabored, Respiratory pattern is regular, symmetrical. GI: Abdomen is flat, non-distended, Reports nausea, vomiting. : No signs and/or symptoms were reported regarding the genitourinary system. EENT: Derm: Skin is intact, Skin is pink, warm \\T\\ dry. Musculoskeletal: Circulation, motion, and sensation intact. Range of motion: intact in all extremities. 08:51 Reassessment: awaiting completion of fluids prior to patients discharge. ap3 Vital Signs: 06:09 BP 147 / 80; Pulse 65; Resp 14; Temp 98.6; Pulse Ox 100% ; Weight 64.41 kg; Height 5 vc1 ft. 1 in. ; Pain 10/10; 08:33 BP 138 / 89; Pulse 67; Pulse Ox 100% ; ap3 09:33 BP 122 / 80; ap3 06:09 Body Mass Index 26.83 (64.41 kg, 154.94 cm) vc1 06:09 Pain Scale: Adult vc1 ED Course: 05:54 Patient arrived in ED. jj6 05:59 John Cordon MD is Attending Physician. rt 06:11 Triage completed. vc1 06:13 Arm band placed on right wrist. vc1 06:13 No provider procedures requiring assistance completed. vc1 06:49 Patient has correct armband on for positive identification. Bed in low position. Call jb4 light in reach. Side rails up X 1. Client placed on continuous cardiac and pulse oximetry monitoring. NIBP monitoring applied. 06:49 Initial lab(s) drawn, by ne, sent to lab. Inserted saline lock: 20 gauge in right jb4 antecubital area, using aseptic technique. Blood collected. 07:04 CT Abd/Pelvis - Without Contrast In Process Unspecified. EDMS 07:05 Attending Physician role handed off by John Cordon MD christian 07:05 Pedro Fajardo MD is Attending Physician. christian 07:24 Dahiana Huertas, PAMELA is Primary Nurse. ap3 08:26 Victor M Engle MD is Referral Physician. christian 09:55 IV discontinued, intact, bleeding controlled, No redness/swelling at site. Pressure ss dressing applied. Administered Medications: 06:51 Drug: Ketorolac IVP 30 mg Route: IVP; Site: right antecubital; jb4 07:44 Follow up: Response: No adverse reaction; Pain is unchanged, physician notified ap3 06:51 Drug: NS 0.9% IV 1000 ml Route: IV; Rate: 1 bolus; Site: right antecubital; jb4 08:48 Follow up: IV Status: Completed infusion ap3 06:51 Drug: Ondansetron IVP 4 mg Route: IVP; Site: right antecubital; jb4 07:44 Follow up: Response: No adverse reaction ap3 07:43 Drug: Flomax PO 0.4 mg Route: PO; ap3 08:34 Follow up: Response: No adverse reaction ap3 07:43 Drug: Rocephin IV 1 grams Route: IV; Rate: per protocol; Site: right antecubital; ap3 08:48 Follow up: Response: No adverse reaction ap3 08:48 Follow up: Response: No adverse reaction; IV Status: Completed infusion ap3 07:43 Drug: fentaNYL (PF) IVP 25 mcg Route: IVP; Site: right antecubital; ap3 08:51 Follow up: Response: No adverse reaction; Pain is decreased ap3 07:43 Drug: Ondansetron IVP 4 mg Route: IVP; Site: right antecubital; ap3 08:34 Follow up: Response: No adverse reaction; Nausea is decreased ap3 08:27 Drug: fentaNYL (PF) IVP 25 mcg Route: IVP; Site: right antecubital; ap3 08:34 Follow up: Response: No adverse reaction; Pain is decreased ap3 08:49 Drug: NS 0.9% IV 1000 ml Route: IV; Rate: 1 bolus; Site: right antecubital; ap3 09:55 Follow up: IV Status: Completed infusion; IV Intake: 1000ml Medication: 06:13 VIS not applicable for this client. vc1 Intake: 09:55 IV: 1000ml; Total: 1000ml. ss Outcome: 08:26 Discharge ordered by . [facility] 09:55 Discharged to home ambulatory. 09:55 Condition: good :55 Discharge instructions given to patient, Instructed on discharge instructions, follow up and referral plans. medication usage, Demonstrated understanding of instructions, follow-up care, medications, Prescriptions given X 4. 09:55 Patient left the ED. Signatures: Dispatcher [employer] EDMS Pedro Fajardo MD MD cha Smirch, Shelby, RN RN ss Charles Haines RN RN jb4 Dahiana Huertas RN RN ap3 Marilu Hatchj6 Ana Ordonez RN RN vc1 John Cordon MD MD rt Corrections: (The following items were deleted from the chart) 06:12 06:11 PMHx: Allergic Reaction; vc1 vc1
--- NOTE | 2023-01-27 08:27 | EDPHYS ---
Physician Documentation [facility] Name: Radha Chi Age: 37 yrs Sex: Female : 1985 Arrival Date: 01/27/2023 Time: 05:53 Bed 5 Private MD: ED Physician Pedro Fajardo HPI: 01/27 06:23 This 37 yrs old Female presents to ER via Ambulatory with complaints of rt Nausea/Vomiting/Diarrhea, Low Back Pain. 06:23 Patient presents to the ED with a right-sided back pain with associated nausea, rt vomiting, diarrhea. The patient states that she had a mechanical fall about 3 days ago. Had mild back pain at that time, progressively worsening with associated nausea, vomiting. Is sharp in nature, radiates from the right flank inferiorly. Denies abdominal pain, dysuria, other acute complaints. Symptoms are moderate severity, no other aggravating or alleviating factors.. 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 - Social history:: Smoking status: Patient denies any tobacco usage or history of. - Family history:: not pertinent. ROS: 06:23 Constitutional: Negative for fever, chills, and weight loss, Cardiovascular: Negative rt for chest pain, palpitations, and edema, Respiratory: Negative for shortness of breath, cough, wheezing, and pleuritic chest pain, MS/Extremity: Negative for injury and deformity, Skin: Negative for injury, rash, and discoloration, Neuro: Negative for headache, weakness, numbness, tingling, and seizure, Psych: Negative for depression, anxiety, suicide ideation, homicidal ideation, and hallucinations. 06:23 Abdomen/GI: Positive for nausea, vomiting, and diarrhea, Negative for abdominal pain. 06:23 Back: Positive for pain at rest, Negative for decreased range of motion. Exam: 06:23 Constitutional: This is a well developed, well nourished patient who is awake, alert, rt and in no acute distress. Head/Face: Normocephalic, atraumatic. Chest/axilla: Normal chest wall appearance and motion. Nontender with no deformity. No lesions are appreciated. Cardiovascular: Regular rate and rhythm with a normal S1 and S2. No gallops, murmurs, or rubs. Normal PMI, no JVD. No pulse deficits. Respiratory: Lungs have equal breath sounds bilaterally, clear to auscultation and percussion. No rales, rhonchi or wheezes noted. No increased work of breathing, no retractions or nasal flaring. Abdomen/GI: Soft, non-tender, with normal bowel sounds. No distension or tympany. No guarding or rebound. No evidence of tenderness throughout. Skin: Warm, dry with normal turgor. Normal color with no rashes, no lesions, and no evidence of cellulitis. MS/ Extremity: Pulses equal, no cyanosis. Neurovascular intact. Full, normal range of motion. Neuro: Awake and alert, GCS 15, oriented to person, place, time, and situation. Cranial nerves II-XII grossly intact. Motor strength 5/5 in all extremities. Sensory grossly intact. Cerebellar exam normal. Normal gait. Psych: Awake, alert, with orientation to person, place and time. Behavior, mood, and affect are within normal limits. 06:23 Back: Right costovertebral angle tenderness, there is right paraspinal tenderness, no midline tenderness, no left-sided tenderness, no step-off. Vital Signs: 06:09 BP 147 / 80; Pulse 65; Resp 14; Temp 98.6; Pulse Ox 100% ; Weight 64.41 kg; Height 5 vc1 ft. 1 in. ; Pain 10/10; 08:33 BP 138 / 89; Pulse 67; Pulse Ox 100% ; ap3 09:33 BP 122 / 80; ap3 06:09 Body Mass Index 26.83 (64.41 kg, 154.94 cm) vc1 06:09 Pain Scale: Adult vc1 MDM: 06:07 Patient medically screened. rt 07:05 Patient medically screened. christian 08:35 Differential diagnosis: Nonspecific abd pain, gastritis, pancreatitis, appendicitis, christian diverticulitis, viral gastroenteritis, gastroenteritis. Data reviewed: vital signs, nurses notes, lab test result(s), CBC, electrolytes, radiologic studies, CT scan. Consideration of Admission/Observation Escalation of care including admission/observation considered. I considered the following discharge prescriptions or medication management in the emergency department Medications were administered in the Emergency Department. See MAR. Test considered but Not performed: Ultrasound no renal usg. Care significantly affected by the following chronic conditions: Hypertension, anxiety. Counseling: I had a detailed discussion with the patient and/or guardian regarding: the historical points, exam findings, and any diagnostic results supporting the discharge/admit diagnosis, lab results, radiology results, the need for outpatient follow up, for definitive care, a family practitioner, a urologist. 01/27 06:15 Order name: CBC with Diff; Complete Time: 07:51 rt 01/27 06:15 Order name: CMP; Complete Time: 07:51 rt 01/27 06:15 Order name: UAM; Complete Time: 06:59 rt 01/27 06:15 Order name: PREGU; Complete Time: 06:59 rt 01/27 06:15 Order name: Lipase; Complete Time: 07:51 rt 01/27 07:37 Order name: CBC Smear Scan; Complete Time: 07:51 EDMS 01/27 06:15 Order name: CT Abd/Pelvis - Without Contrast; Complete Time: 08:25 rt Administered Medications: 06:51 Drug: Ketorolac IVP 30 mg Route: IVP; Site: right antecubital; jb4 07:44 Follow up: Response: No adverse reaction; Pain is unchanged, physician notified ap3 06:51 Drug: NS 0.9% IV 1000 ml Route: IV; Rate: 1 bolus; Site: right antecubital; jb4 08:48 Follow up: IV Status: Completed infusion ap3 06:51 Drug: Ondansetron IVP 4 mg Route: IVP; Site: right antecubital; jb4 07:44 Follow up: Response: No adverse reaction ap3 07:43 Drug: Flomax PO 0.4 mg Route: PO; ap3 08:34 Follow up: Response: No adverse reaction ap3 07:43 Drug: Rocephin IV 1 grams Route: IV; Rate: per protocol; Site: right antecubital; ap3 08:48 Follow up: Response: No adverse reaction ap3 08:48 Follow up: Response: No adverse reaction; IV Status: Completed infusion ap3 07:43 Drug: fentaNYL (PF) IVP 25 mcg Route: IVP; Site: right antecubital; ap3 08:51 Follow up: Response: No adverse reaction; Pain is decreased ap3 07:43 Drug: Ondansetron IVP 4 mg Route: IVP; Site: right antecubital; ap3 08:34 Follow up: Response: No adverse reaction; Nausea is decreased ap3 08:27 Drug: fentaNYL (PF) IVP 25 mcg Route: IVP; Site: right antecubital; ap3 08:34 Follow up: Response: No adverse reaction; Pain is decreased ap3 08:49 Drug: NS 0.9% IV 1000 ml Route: IV; Rate: 1 bolus; Site: right antecubital; ap3 09:55 Follow up: IV Status: Completed infusion; IV Intake: 1000ml ss Disposition Summary: 01/27/23 08:26 Discharge Ordered Location: Home christian Problem: new christian Symptoms: have improved christian Condition: Stable christian Diagnosis - Hydronephrosis with renal and ureteral calculous obstruction - 5 mm right distal christian ureter calculi Followup: christian - With: Private Physician - When: 2 - 3 days - Reason: Recheck today's complaints, Continuance of care, Re-evaluation by your physician Followup: christian - With: Victor M Engle MD - When: 2 - 3 days - Reason: Recheck today's complaints, Re-evaluation by your physician Discharge Instructions: - Discharge Summary Sheet christian - Kidney Stones christian - Kidney Stones, [id number] christian - Hydronephrosis christian - Dietary Guidelines to Help Prevent Kidney Stones christian Forms: - Medication Reconciliation Form christian - Thank You Letter christian - Antibiotic Education christian - Prescription Opioid Use christian Prescriptions: - Flomax 0.4 mg Oral capsule - take 1 capsule by ORAL route every day at bedtime; 20 capsule; Refills: 0, [facility] Product Selection Permitted - acetaminophen-codeine 300-30 mg Oral tablet - take 2 tablet by ORAL route every 6 hours; 24 tablet; Refills: 0, Product [facility] Selection Permitted - Cipro 250 mg Oral Tablet - take 1 tablet by ORAL route every 12 hours; 14 tablet; Refills: 0, Product [facility] Selection Permitted - Zofran 4 mg Oral Tablet - take 1 tablet by ORAL route every 12 hours As needed; 20 tablet; Refills: 0, [facility] Product Selection Permitted Signatures: Dispatcher [employer] Pedro Carey MD MD cha Bryson, James, RN RN jb4 Dahiana Huertas RN RN ap3 Ana Ordonez RN RN vc1 John Cordon MD MD rt Smirch, Shelby RN ss Corrections: (The following items were deleted from the chart) 06:12 06:11 PMHx: Allergic Reaction; vc1 vc1
[2023-01-27 10:18] VITALS: TEMP 98.6; O2SAT 100
[2023-01-27 10:20] VITALS: BP 122/80
== END 2023-01-27 09:55 | disposition home or self-care (01) ==
LOC: ER 05:53
DX: N13.2 Hydronephrosis with renal and ureteral calculous obstruction (principal)
CPT/HCPCS: 36415; 74176; 80053; 81001; 81025; 83690; 85025; 96361; 96365; 96375; 99284; J0696; J2405; J3010; J7030

== ENCOUNTER 2024-11-11 14:27 | Emergency (ER) | payer OTHER, SELFPAY ==
--- OUTSIDE RECORDS SUMMARY | 2024-11-11 14:30 | XMS REPORT | Clinical Summary ---
Author Name Unknown Organization [facility] Address [address] [place] [id number] Care Team Providers Care Bandoleer Straightener Stamper Name Role Phone Physician, Outside Primary Care Provider Unavail able Julia Jaramillo Unavailable Julia Jaramillo Unavailable Allergies No known active allergies Medications No known medications Encounters Date Type Department Care Team Description 06/05/2024 10:00 AM CDT Ancillary Procedure [address] [address] Mammography abnormal 06/05/[address] [address] Nohemi Benoit RN 06/05/2024 Travel 06/02/2024 7:30 AM CDT Ancillary Procedure [address] [address] Mammography abnormal 06/02/2024 6:30 AM CDT Ancillary Procedure [address] [address] Mammography abnormal 06/02/[address] [address] Nohemi Benoit RN 05/19/2024 8:05 PM CDT Ancillary Procedure Image [facility] [address] [place] [address] Cancer 05/19/2024 8:00 PM CDT Ancillary Procedure [facility] [address] [place] [address] Cancer 05/10/2024 10:05 AM CDT Ancillary Procedure Mobile Mammography [address] [place] [address] Jose Elias Block MD Screening mammography 05/08/2024 Documentation Breast Imaging [address] [facility], 5th [place] [address] Randi Grewal, RT after 11/12/2023 Surgical History Surgery Date Site/Laterality Comments BREAST BIOPSY US BREAST BIOPSY HISTORY 09/27/2016 - 09/26/2017 Left BENIGN Social History Tobacco Use Types Packs/Day Years Used Date Smoking Tobacco: Never Assessed Comments No Sex and Gender Information Value Date Recorded Sex Assigned at Not on file Legal Sex Female 11:42 AM CDT Gender Identity Not on file Sexual Orientation Not on file Obstetrics History Para Term AB IAB SAB Ectopic Multiple Livin g Live Births 4 4 4 Date Outcome GA Total Labor Labor/2nd/3rd Weight Sex Type Anes PTL Eve A1 A5 Name Clin Term Term Term Term Last Filed Vital Signs Vital Sign Reading Time Taken Comments Blood Pressure 152/89 06/05/2024 10:51 AM CDT Pulse 63 06/05/2024 10:51 AM CDT Temperature - - Respiratory Rate - - Oxygen Saturation 98% 06/05/2024 10:51 AM CDT Inhaled Oxygen Concentration - - Weight - - Height - - Body Mass Index - - Plan of Treatment Health Maintenance Due Date Last Done Comments COVID-19 Vaccine (2023-2 5 season) 2024 Influenza Vaccine (#1) 2024 Pneumococcal Vaccine Aged Out No long er eligible based on patient's age to complete this topic Procedures Procedure Name Priority Date/Time Associated Diagnosis Comments MAMMO PRE-STEREO TESTER SEMICONDUCTOR PACKAGES Routine 06/05/2024 11:05 AM CDT Mammography abnormal US CHEST/INFRACLAV FOR BREAST ULTRASOUND Routine 06/02/2024 8:38 AM CDT Mammography abnormal US BREAST COMPLETE BILATERAL Routine 06/02/2024 8:38 AM CDT Mammography abnormal MAMMO DIGITAL DIAGNOSTIC BILATERAL W REID Routine 06/02/2024 7:59 AM CDT Mammography abnormal MOBILE MAMMO DIGITAL SCREENING BILATERAL W REID Routine 05/10/2024 10:48 AM CDT Screening mammography after 11/12/2023 Results * Mammo Pre-Stereo Tool And Die Maker Level Five (06/05/2024 11:05 AM CDT) Anatomical Region Laterality Modality Breast Mammography Narrative 06/05/2024 11:32 AM CDT Tool And Die Maker Level Five images were performed in anticipation of stereotactic biopsy. The questionable finding of architectural distortion could not be reproduced, and therefore no biopsy was performed. Diagnostic mammogram in 6 months is recommended to assess stability of the site. These results were discussed with the patient. Julia Jaramillo [facility] [place] Final Result * US Chest/Infraclav for Breast Ultrasound (06/02/2024 8:38 AM CDT) Anatomical Region Laterality Modality Chest Bilateral Ultrasound Impressions 06/02/2024 10:11 AM CDT Multiple bilateral fibroadenoma like masses are probably benign, but limited baseline imaging is available. 6-month follow-up ultrasound is recommended to document stability. Please refer to diagnostic mammogram report for further details regarding stereotactic biopsy of possible architectural distortion in the right breast. Overall BI-RAD Category: 3 - Probably Benign Breast Ultrasound in 6 Months is recommended. Narrative 06/02/2024 10:11 AM CDT CLINICAL INDICATION: Patient is a 38 y.o. female and is seen for abnormal mammogram. US Breast Complete Bilateral US Chest/Infraclav for Breast Ultrasound COMPARISON: No comparisons were made when reading this study. TECHNIQUE: Real-time sonographic imaging was performed on the following regions: bilateral, breast (including all 4 quadrants and retroareolar region) bilateral, regional [place] including the axillary (level I,II,III) and internal mammary regions. Images were obtained in multiple scanning planes. FINDINGS: Multiple bilateral oval circumscribed hypoechoic masses are identified. These likely represent fibroadenomas, and 1 was previously biopsied on 08/18/2011. Scattered fibrocystic changes are seen in both breasts. These sonographic findings correlate with mammographic findings. us [facility] US ORDERABLES Final Result * US Breast Complete Bilateral (06/02/2024 8:38 AM CDT) Anatomical Region Laterality Modality Breast Bilateral Ultrasound Impressions 06/02/2024 10:11 AM CDT Multiple bilateral fibroadenoma like masses are probably benign, but limited baseline imaging is available. 6-month follow-up ultrasound is recommended to document stability. Please refer to diagnostic mammogram report for further details regarding stereotactic biopsy of possible architectural distortion in the right breast. Overall BI-RAD Category: 3 - Probably Benign Breast Ultrasound in 6 Months is recommended. Narrative 06/02/2024 10:11 AM CDT CLINICAL INDICATION: Patient is a 38 y.o. female and is seen for abnormal mammogram. US Breast Complete Bilateral US Chest/Infraclav for Breast Ultrasound COMPARISON: No comparisons were made when reading this study. TECHNIQUE: Real-time sonographic imaging was performed on the following regions: bilateral, breast (including all 4 quadrants and retroareolar region) bilateral, regional [place] including the axillary (level I,II,III) and internal mammary regions. Images were obtained in multiple scanning planes. FINDINGS: Multiple bilateral oval circumscribed hypoechoic masses are identified. These likely represent fibroadenomas, and 1 was previously biopsied on 08/18/2011. Scattered fibrocystic changes are seen in both breasts. These sonographic findings correlate with mammographic findings. [facility] US ORDERABLES Final Result * (ABNORMAL) Diagnostic Mammogram w Reid - Bilateral (06/02/2024 7:59 AM CDT) Anatomical Region Laterality Modality Breast Bilateral Mammography Impressions 06/02/2024 10:09 AM CDT Right 1) Architectural Distortion: Right breast architectural distortion at the upper position. Stereotactic-Guided Breast Biopsy is recommended. If no target is seen on day of biopsy, 6-month follow-up recommended. Bilateral 2) Mass: Both breasts masses (multiple findings). Additional Imaging: Breast Ultrasound is recommended. Overall BI-RAD Category: 4 - Suspicious Stereotactic-Guided Breast Biopsy is recommended for the right breast. Additional Imaging: Breast Ultrasound is recommended for both breasts. Narrative 06/02/2024 10:09 AM CDT CLINICAL INDICATION: Patient is a 38 y.o. female and is seen for abnormal mammogram. Diagnostic Mammogram w Reid - Bilateral Computer-aided detection was utilized by the radiologist in the interpretation of this examination. Tomosynthesis was performed in CC and MLO projections. COMPARISON: The present examination has been compared to prior imaging studies performed : 05/10/2024 Mobile Mammography Screening Bilateral with Reid at [facility] FINDINGS: The breasts are heterogeneously dense, which may obscure small masses. Multiple bilateral oval circumscribed and obscured masses are seen mammographically. The largest 2 are in the left breast. Prior ultrasounds from 2010 showed 1 of these underwent biopsy. The asymmetry described in the right breast appears to localize to the 12 o'clock position. Area of possible architectural distortion in the right superior breast appears most conspicuous on right spot LM Reid image 15/52. [facility] MAMMOGRAPHY ORDERABLES Final Result * Mobile Mammography Screening Bilateral with Reid (05/10/2024 10:48 AM CDT) Anatomical Region Laterality Modality Breast Bilateral Mammography Impressions 05/12/2024 12:41 PM CDT Left 1) Mass: Left breast 2 cm mass at the inner position and 11-12 o'clock. 2) Asymmetry: Left breast 1 cm asymmetry at the inner position. Right 3) Asymmetry: Right breast 0.8 cm asymmetry at the upper position. Overall BI-RAD Category: 0 - Incomplete: Needs Additional Imaging Evaluation Additional Imaging: Diagnostic Mammogram and Possible Breast Ultrasound is recommended for the left breast. Additional Imaging: Diagnostic Mammogram and Possible Breast Ultrasound is recommended for both breasts. Narrative 05/12/2024 12:41 PM CDT CLINICAL INDICATION: Patient is a 38 y.o. female and is seen for screening. Mobile Mammography Screening Bilateral with Reid Computer-aided detection was utilized by the radiologist in the interpretation of this examination. Tomosynthesis was performed in CC and MLO projections. COMPARISON: No comparisons were made when reading this study. FINDINGS: The breasts are heterogeneously dense, which may obscure small masses. Left 1) Mass: There is a 2 cm oval mass seen in the inner region of the left breast at 11-12 o'clock, 5 to 6 cm from the nipple. 2) Asymmetry: There is a 1 cm asymmetry seen in the inner region of the left breast, 9 cm from the nipple on the CC (slice 48) view. Right 3) Asymmetry: There is an 0.8 cm asymmetry seen in the upper region of the right breast, 9 cm from the nipple on the MLO (slice 44) view. Julia Jaramillo IM MAMMOGRAPHY ORDERABLES Final Result after 11/12/2023 Care Teams Bandoleer Straightener Stamper Relationship Specialty Start Date End Date Physician, [place] [address] PCP - General Oncology 05/25/[address], [address] [place] [id number] PCP - External Follow Up A 05/25/24 Julia Jaramillo [address], [address] [place] [id number] PCP - External Referring 05/25/24
[2024-11-11] MEDS ORDERED: TDAP (DIPHTH,PERTUSS(ACELL),TET VAC) 0.5 ML VIAL IMVAC ONE (14:49)
--- NOTE | 2024-11-11 14:49 | EDPHYS ---
Physician Documentation [facility] Name: Radha Chi Age: 39 yrs Sex: Female : 1985 Arrival Date: 11/11/2024 Time: 14:27 Bed 11 Private MD: ED Physician James Blanco HPI: 11/11 14:33 This 39 yrs old Female presents to ER via Unassigned with complaints of kb Laceration To Leg. 14:33 Pt is a 39 year old female who presents for laceration to right leg. States she sat on kb a seat in a vehicle and a piece of neftaly metal cut her. Denies any other injuries. . 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 - Infectious Disease History:: Denies. - Social history:: Smoking status: Patient denies any tobacco usage or history of. ROS: 14:34 Constitutional: As per HPI kb Exam: 14:45 Constitutional: This is a well developed, well nourished patient who is awake, alert, kb and in no acute distress. Head/Face: Normocephalic, atraumatic. ENT: Moist Mucous membranes Cardiovascular: Regular rate Respiratory: Respirations even and unlabored. No increased work of breathing. Talking in full sentences MS/ Extremity: Pulses equal, no cyanosis. Neurovascular intact. Full, normal range of motion. Neuro: Awake and alert, GCS 15, oriented to person, place, time, and situation. 14:45 Skin: injury, abrasion(s), very small abrasion noted, of the medial aspect of right thigh, Vital Signs: 14:34 BP 150 / 100; Pulse 80; Resp 16 S; Temp 97.8(TE); Pulse Ox 96% on R/A; Weight 72.57 kg aa5 (R); Height 5 ft. 1 in. (R); 14:34 Body Mass Index 30.23 (72.57 kg, 154.94 cm) aa5 MDM: 14:31 Medical Screening Exam initiated kb 14:45 Differential diagnosis: superficial laceration, tendon injury, vascular injury, kb abrasion. Data reviewed: vital signs, nurses notes. Counseling: I had a detailed discussion with the patient and/or guardian regarding the historical points, exam findings, and any diagnostic results supporting the discharge/admit diagnosis, the need for outpatient follow up, a family practitioner, to return to the emergency department if symptoms worsen or persist or if there are any questions or concerns that arise at home. 11/11 14:42 Order name: Wound Care: clean and dress; Complete Time: 14:55 kb Administered Medications: 14:55 Drug: Boostrix Tdap IM 0.5 ml IM once; as a single dose Route: IM; Site: left deltoid; aa5 15:10 Follow up: Response: No adverse reaction aa5 Disposition Summary: 11/11/24 14:49 Discharge Ordered Notes: Location: Home kb Condition: Stable kb Diagnosis - Abrasion of right thigh kb Followup: kb - With: Emergency Department - When: As needed - Reason: Worsening of condition Followup: kb - With: Private Physician - When: 2 - 3 days - Reason: Recheck today's complaints, Continuance of care, Re-evaluation by your physician Discharge Instructions: - Discharge Summary Sheet kb - Abrasion, [id number] kb Forms: - Medication Reconciliation Form kb - Antibiotic Education kb - Prescription Opioid Use kb - Patient Portal Instructions kb - Leadership Thank You Letter kb Signatures: Radha Noyola FNP-C FNP-Nidia Turner, RN RN aa5
--- NOTE | 2024-11-11 14:49 | ER ---
Nurse's Notes [facility] Name: Radha Chi Age: 39 yrs Sex: Female : 1985 Arrival Date: 11/11/2024 Time: 14:27 Bed 11 Private MD: Diagnosis: Abrasion of right thigh Presentation: 11/11 14:34 Chief complaint: Patient states: was at work sitting down, scoot over in the chair and aa5 a piece of metal ripped her jeans, small abrasion noted to right inner thigh. 14:34 Coronavirus screen: At this time, the client does not indicate any symptoms associated aa5 with coronavirus-19. Ebola Screen: Patient denies travel to an Ebola-affected area in the 21 days before illness onset. Complicating Factors: There are no complicating factors for this patient. Initial Sepsis Screen: Does the patient meet any 2 criteria? No. Patient's initial sepsis screen is negative. Does the patient have a suspected source of infection? No. Patient's initial sepsis screen is negative. Risk Assessment: Do you want to hurt yourself or someone else? Patient reports no desire to harm self or others. Onset of symptoms was November 11, 2024. 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 - Infectious Disease History:: Denies. - Social history:: Smoking status: Patient denies any tobacco usage or history of. Screenin:35 [facility] ED Fall Risk Assessment (Adult) History of falling in the last 3 months, aa5 including since admission No falls in past 3 months (0 pts) Confusion or Disorientation No (0 pts) Intoxicated or Sedated No (0 pts) Impaired Gait No (0 pts) Mobility Assist Device Used No (0 pt) Altered Elimination No (0 pt) Score/Fall Risk Level 0 - 2 = Low Risk Oriented to surroundings, Maintained a safe environment, Educated pt \T\ family on fall prevention, incl call for assistance when getting out of bed. Abuse screen: Denies threats or abuse. Nutritional screening: No deficits noted. Tuberculosis screening: No symptoms or risk factors identified. Assessment: 14:34 General: Appears comfortable, Behavior is calm, cooperative. Pain: Complains of pain in aa5 medial aspect of right thigh. Neuro: Level of Consciousness is awake, alert, obeys commands, Oriented to person, place, time, situation. Cardiovascular: Patient's skin is warm and dry. Respiratory: Airway is patent Respiratory effort is even, unlabored, Respiratory pattern is regular, symmetrical. GI: No signs and/or symptoms were reported involving the gastrointestinal system. : No signs and/or symptoms were reported regarding the genitourinary system. EENT: No signs and/or symptoms were reported regarding the EENT system. Derm: Skin is pink, warm \T\ dry. Musculoskeletal: Range of motion: intact in all extremities. Injury Description: Laceration sustained to medial aspect of right thigh is clean, superficial, 0.5 to 2.5 cm long, not bleeding, was sustained 30-60 minutes ago. is bleeding no active bleeding noted. 14:55 Reassessment: Cleaned wound with saline, dressed with Neosporin, gauze, and tape. . aa5 15:10 Reassessment: Patient is alert, oriented x 3, equal unlabored respirations, skin aa5 warm/dry/pink. Pt states she was taken off antihypertensive medication approximately 4 years ago, pt was instructed to keep BP log at home and follow-up with PCP. . 15:15 Reassessment: Patient is alert, oriented x 3, equal unlabored respirations, skin aa5 warm/dry/pink. Vital Signs: 14:34 BP 150 / 100; Pulse 80; Resp 16 S; Temp 97.8(TE); Pulse Ox 96% on R/A; Weight 72.57 kg aa5 (R); Height 5 ft. 1 in. (R); 14:34 Body Mass Index 30.23 (72.57 kg, 154.94 cm) aa5 ED Course: 14:29 Patient arrived in ED. [id number] 14:31 Rad[facility] Noyola FNP-C [facility]. kb 14:31 James Blanco MD is Attending Physician. kb 14:34 Arm band placed on Patient placed in an exam room, on a stretcher. aa5 14:34 Patient has correct armband on for positive identification. Bed in low position. Call aa5 light in reach. Side rails up X 1. 14:46 Triage completed. aa5 14:55 Nidia Fam, RN is Primary Nurse. aa5 15:10 No provider procedures requiring assistance completed. Patient did not have IV access aa5 during this emergency room visit. Administered Medications: 14:55 Drug: Boostrix Tdap IM 0.5 ml IM once; as a single dose Route: IM; Site: left deltoid; aa5 15:10 Follow up: Response: No adverse reaction aa5 Medication: 14:55 Vaccine Information Statement (VIS) provided today. Questions and/or concerns aa5 addressed. VIS edition date: May 02, 2021. Outcome: 14:49 Discharge ordered by . kb 15:15 Discharged to home ambulatory, aa5 15:15 Condition: stable 15:15 Discharge instructions given to patient, Instructed on discharge instructions, follow up and referral plans. Demonstrated understanding of instructions, follow-up care, 15:20 Patient left the ED. aa5 Signatures: Radha Noyola, SOCIAL SERVICE MANAGER-C SOCIAL SERVICE MANAGER-Ckb Nidia Fam, RN RN aa5 Marilu Hatch [email or web address]
[2024-11-11 15:35] VITALS: BP 150/100; TEMP 97.8; O2SAT 96
== END 2024-11-11 15:20 | disposition home or self-care (01) ==
LOC: ER 14:27
DX: S70.311A Abrasion, right thigh, initial encounter (principal)
CPT/HCPCS: 96372; 99284